=== PATIENT | female | born 2000 | race African-American/Black ===

== ENCOUNTER 2018-12-05 11:07 | Inpatient (IN) ==
[2018-12-05] MEDS ORDERED: BUTORPHANOL 2 MG/ML VIAL IV PRN (11:25)
[2018-12-05] MEDS ORDERED: ONDANSETRON 4 MG/2 ML VIAL IV PRN ×2 (11:25→15:52)
[2018-12-05] MEDS ORDERED: OXYTOCIN/LR 20 UNIT/1,000 ML BAG IV SCH (11:30)
[2018-12-05] MEDS ORDERED: FAMOTIDINE 20 MG/2 ML VIAL IV ONE (11:48)
[2018-12-05] MEDS ORDERED: NALOXONE 0.4 MG/ML VIAL IV PRN (11:48)
[2018-12-05] MEDS ORDERED: PROMETHAZINE 25 MG/1 ML VIAL IM ONE (11:48)
[2018-12-05] MEDS ORDERED: hydrOXYzine HCL 25 MG/1 ML VIAL IM PRN (11:48)
[2018-12-05] MEDS ORDERED: ePHEDrine 50 MG/ML AMP IV PRN (11:48)
[2018-12-05] MEDS ORDERED: diphenhydrAMINE 50 MG/1 ML VIAL IV PRN ×2 (11:48)
[2018-12-05] MEDS ORDERED: CITRIC ACID/SODIUM CITRATE 30 ML UDCUP PO ONE (11:48)
[2018-12-05] MEDS ORDERED: ONDANSETRON 4 MG/2 ML VIAL IV ONE (11:48)
[2018-12-05] MEDS: LACTATED RINGERS 1,000 ML IV SCH ×3 (11:59→13:49)
[2018-12-05] MEDS ORDERED: fentaNYL 2 MCG/ROPIV 0.2% EPID 100 ML EPIDURAL SCH (12:00)
[2018-12-05 12:10] LABS: Basophils % 0.3 % (0.0-0.8); Eosinophils % 0.1 % (0.00-10.9); Hemoglobin 11.2 GM/DL (12.0-16.0); Immature Granulocytes % 0.4 %; Immature Granulocytes Absolute 0.03 #; Lymphocytes # 0.7 10*3/uL (1.4-4.0); Lymphocytes % 9.8 % (21.3-54.2); Mean Corpuscular HGB Conc 31.1 GM/DL (32-36); Mean Corpuscular Volume 72.3 FL (87-102); Mean Platelet Volume 12.2 FL (9.6-12.0); Monocytes % 5.1 % (1.7-12.7); Neutrophils % 84.3 % (38.7-73.9); Platelet Count 239 T/CUMM (130-400); Red Blood Count 4.98 MC/CUMM (3.8-5.5); Red Cell Distribution Width 14.3 % (9.3-17.3); White Blood Count 7.4 T/CUMM (4-12)
[2018-12-05 12:32] LABS: Alanine Aminotransferase 32 U/L (13-56); Albumin 3.2 G/DL (3.4-5.0); Alkaline Phosphatase 213 U/L (45-117); Aspartate Amino Transferase 26 U/L (0-37); Bilirubin,Total < 0.39 MG/DL (0.2-1.0); Blood Urea Nitrogen 4 MG/DL (7-18); Calcium 9.4 MG/DL (8.5-10.1); Glucose 78 MG/DL (74-106); Osmolality,Calculated 272.5 MOS/KG (273-304); Total Protein 7.8 G/DL (6.4-8.3)
[2018-12-05] MEDS ORDERED: ACETAMINOPHEN 325 MG TABLET PO PRN (15:52)
[2018-12-05] MEDS ORDERED: DIPH/TET/ACEL PERT BOOSTER VACCINE 0.5 ML VIAL IM ONE (15:52)
[2018-12-05] MEDS ORDERED: oxyCODONE/ACETAMINOPHEN 5-325 MG TABLET PO PRN ×2 (15:52)
[2018-12-05] MEDS ORDERED: RHO(D) IMMUNE GLOBULIN 300 MCG SYRINGE IM ONE (15:52)
[2018-12-05] MEDS ORDERED: BENZOCAINE 20%/MENTHOL 0.5% SPRAY 56 GM CAN TOP PRN (15:52)
[2018-12-05] MEDS ORDERED: WITCH HAZEL PADS 100/JAR TOP PRN (15:52)
[2018-12-05] MEDS ORDERED: HYDROCORTISONE 2.5% RECTAL CREAM 30 GM TUBE TOP PRN (15:52)
[2018-12-05] MEDS ORDERED: LANOLIN 50% CREAM 0.3 OZ TUBE TOP PRN (15:52)
[2018-12-05] MEDS ORDERED: BISACODYL 10 MG SUPP RECTAL PRN (15:52)
[2018-12-05] MEDS ORDERED: MEASLES/MUMPS/RUBELLA VACCINE 0.5 ML VIAL SUBCUT ONE (15:52)
[2018-12-05] MEDS ORDERED: OXYTOCIN/LR 20 UNIT/1,000 ML BAG IV ONE (15:52)
[2018-12-05 16:20] LABS: Apearance,Urine CLEAR (Clear); Bilirubin,Urine Negative (Negative); Blood, Urine Negative (Negative); Glucose,Urine (UA) Negative (Negative); Ketones,Urine 80 mg/dL (Negative); Mucus,Urine Moderate /LPF (Occasional); Nitrite,Urine Negative (Negative); Protein,Urine Negative; RBC,Urine <1 /HPF (0-4); Squamous Epithelial Cell,Urine Occasional /HPF (0-10); Urine Color Yellow (Yellow); Urine Specific Gravity 1.016 (1.001-1.035); WBC,Urine 1 /HPF (0-6)
[2018-12-05 19:44] LABS: Hepatitis B Surface Ag Quant 0.14 Index; Hepatitis B Surface Ag Result Negative (Negative)
[2018-12-05] MEDS: DOCUSATE SODIUM 100 MG CAPSULE PO SCH (21:31)
[2018-12-05] MEDS: IBUPROFEN 800 MG TABLET PO PRN (21:32)
[2018-12-06] MEDS: IBUPROFEN 800 MG TABLET PO PRN ×2 (05:38→19:32)
[2018-12-06 05:47] LABS: Basophils # 0.1 10*3/uL (0.0-0.2); Basophils % 0.5 % (0.0-0.8); Eosinophils # 0.1 10*3/uL (0.0-0.87); Hematocrit 34.1 VOL% (35.7-47.0); Hemoglobin 10.4 GM/DL (12.0-16.0); Immature Granulocytes % 0.5 %; Immature Granulocytes Absolute 0.05 #; Lymphocytes # 2.4 10*3/uL (1.4-4.0); Lymphocytes % 22.6 % (21.3-54.2); Mean Corpuscular HGB Conc 30.5 GM/DL (32-36); Mean Corpuscular Volume 73.7 FL (87-102); Mean Platelet Volume 12.6 FL (9.6-12.0); Monocytes % 7.1 % (1.7-12.7); Neutrophils % 68.3 % (38.7-73.9); Platelet Count 209 T/CUMM (130-400); Red Blood Count 4.63 MC/CUMM (3.8-5.5); Red Cell Distribution Width 14.6 % (9.3-17.3); White Blood Count 10.5 T/CUMM (4-12)
[2018-12-06] MEDS: DOCUSATE SODIUM 100 MG CAPSULE PO SCH ×3 (09:45→21:40)
[2018-12-07 07:19] VITALS: BP 106/63
[2018-12-07] MEDS: DOCUSATE SODIUM 100 MG CAPSULE PO SCH (08:35)
== END 2018-12-07 12:10 | disposition home or self-care (01) | DRG 560 ==
LOC: N.LDOUT 11:07 → N.LD 11:09 → N.OB 19:21
PROVIDERS: ADMIT Obstetrics & Gynecology; ATTEND Specialist

== ENCOUNTER 2020-07-25 05:26 | Inpatient (IN) ==
[2020-07-25] MEDS ORDERED: LACTATED RINGERS 1,000 ML IV ONE (05:34)
[2020-07-25] MEDS ORDERED: ONDANSETRON 4 MG/2 ML VIAL IV PRN ×2 (05:34→17:50)
[2020-07-25] MEDS ORDERED: MEPERIDINE 50 MG/1 ML VIAL IM PRN (05:34)
[2020-07-25] MEDS ORDERED: AMPICILLIN INJ 2,000 MG in SODIUM CHLORIDE 0.9% 100 ML IV ONE (05:36)
[2020-07-25 06:03] LABS: Basophils % 0.3 % (0.0-0.8); Eosinophils # 0.2 10*3/uL (0.0-0.87); Eosinophils % 2.5 % (0.00-10.9); Hematocrit 32.7 VOL% (35.7-47.0); Hemoglobin 10.3 GM/DL (12.0-16.0); Immature Granulocytes % 0.2 %; Immature Granulocytes Absolute 0.01 #; Lymphocytes # 2.3 10*3/uL (1.4-4.0); Lymphocytes % 34.5 % (21.3-54.2); Mean Corpuscular HGB Conc 31.5 GM/DL (32-36); Mean Corpuscular Volume 72.3 FL (87-102); Mean Platelet Volume 12.2 FL (9.6-12.0); Monocytes % 8.6 % (1.7-12.7); Neutrophils % 53.9 % (38.7-73.9); Platelet Count 227 T/CUMM (130-400); Red Blood Count 4.52 MC/CUMM (3.8-5.5); Red Cell Distribution Width 13.9 % (9.3-17.3); White Blood Count 6.5 T/CUMM (4-12)
[2020-07-25] MEDS: LACTATED RINGERS 1,000 ML IV SCH ×2 (06:03→08:23)
[2020-07-25] MEDS: OXYTOCIN/LR 20 UNIT/1,000 ML BAG IV SCH ×2 (06:10→17:50)
[2020-07-25 06:37] LABS: Alanine Aminotransferase 18 U/L (13-56); Albumin 2.5 G/DL (3.4-5.0); Alkaline Phosphatase 199 U/L (45-117); Aspartate Amino Transferase 23 U/L (0-37); Bilirubin,Total < 0.39 MG/DL (0.2-1.0); Blood Urea Nitrogen 6 MG/DL (7-18); Calcium 8.9 MG/DL (8.5-10.1); Carbon Dioxide 20 MMOL/L (21-32); Estimated Glom Filtration Rate 141 ML/MIN; Glucose 77 MG/DL (74-106); Osmolality,Calculated 271.7 MOS/KG (273-304); Potassium 4.1 MMOL/L (3.5-5.1); Sodium 138 MMOL/L (136-145); Total Protein 7.1 G/DL (6.4-8.3)
[2020-07-25] MEDS ORDERED: hydrOXYzine HCL 25 MG/1 ML VIAL IM PRN (07:52)
[2020-07-25] MEDS ORDERED: NALOXONE 0.4 MG/ML VIAL IV PRN (07:52)
[2020-07-25] MEDS ORDERED: PROMETHAZINE 25 MG/1 ML VIAL IM ONE (07:52)
[2020-07-25] MEDS ORDERED: diphenhydrAMINE 50 MG/1 ML VIAL IV PRN ×2 (07:52)
[2020-07-25] MEDS ORDERED: CITRIC ACID/SODIUM CITRATE 30 ML UDCUP PO ONE (07:52)
[2020-07-25] MEDS ORDERED: ePHEDrine 50 MG/ML VIAL IV PRN (07:52)
[2020-07-25] MEDS ORDERED: FAMOTIDINE 20 MG/2 ML VIAL IV ONE (07:52)
[2020-07-25] MEDS ORDERED: fentaNYL 2 MCG/ROPIV 0.2% EPID 100 ML EPIDURAL SCH (08:00)
[2020-07-25] MEDS ORDERED: AMPICILLIN INJ 1,000 MG in SODIUM CHLORIDE 0.9% 100 ML IV SCH (10:00)
[2020-07-25] MEDS ORDERED: TRANEXAMIC ACID 1,000 MG/10 ML VIAL ONE (12:11)
[2020-07-25] MEDS ORDERED: miSOPROStoL 200 MCG TABLET ONE (12:11)
[2020-07-25] MEDS ORDERED: METHYLERGONOVINE 0.2 MG/1 ML AMP ONE (12:12)
[2020-07-25] MEDS ORDERED: CARBOPROST TROMETHAMINE 250 MCG/ML AMP IM ONE (12:12)
[2020-07-25 12:32] LABS: Cord Arterial Blood HCO3 20.9 MMOL/L
[2020-07-25 12:33] LABS: Cord Venous Blood PCO2 46.3 MMHG; Cord Venous Blood PO2 26.2 MMHG
[2020-07-25 12:37] LABS: Bilirubin,Urine Negative (Negative); Blood, Urine Negative (Negative); Glucose,Urine (UA) Negative (Negative); Ketones,Urine 5 mg/dL (Negative); Mucus,Urine Occasional /LPF (Occasional); Nitrite,Urine Negative (Negative); Protein,Urine Negative; RBC,Urine <1 /HPF (0-4); Squamous Epithelial Cell,Urine Occasional /HPF (0-10); Urine Appearance CLEAR (Clear); Urine Color Straw (Yellow); Urine Specific Gravity 1.009 (1.001-1.035); Urine Urobilinogen < 2.0 EU/DL (0.2-1.0)
[2020-07-25] MEDS: IBUPROFEN 800 MG TABLET PO PRN ×2 (15:11→22:14)
[2020-07-25] MEDS: oxyCODONE/ACETAMINOPHEN 5-325 MG TABLET PO PRN (17:49)
[2020-07-25] MEDS ORDERED: MEASLES/MUMPS/RUBELLA VACCINE 0.5 ML VIAL SUBCUT ONE (17:50)
[2020-07-25] MEDS ORDERED: BISACODYL 10 MG SUPP RECTAL PRN (17:50)
[2020-07-25] MEDS ORDERED: DIPH/TET/ACEL PERT BOOSTER VACCINE 0.5 ML VIAL IM ONE (17:50)
[2020-07-25] MEDS ORDERED: BENZOCAINE 20%/MENTHOL 0.5% SPRAY 56 GM CAN TOP PRN (17:50)
[2020-07-25] MEDS ORDERED: LANOLIN 50% CREAM 0.3 OZ TUBE TOP PRN (17:50)
[2020-07-25] MEDS ORDERED: ACETAMINOPHEN 325 MG TABLET PO PRN (17:50)
[2020-07-25] MEDS ORDERED: OXYTOCIN/LR 20 UNIT/1,000 ML BAG IV ONE (17:50)
[2020-07-25] MEDS ORDERED: oxyCODONE/ACETAMINOPHEN 5-325 MG TABLET PO PRN (17:50)
[2020-07-25] MEDS ORDERED: IBUPROFEN 800 MG TABLET PO PRN (17:50)
[2020-07-25] MEDS ORDERED: RHO(D) IMMUNE GLOBULIN 300 MCG SYRINGE IM ONE (17:50)
[2020-07-25] MEDS ORDERED: HYDROCORTISONE 2.5% RECTAL CREAM 30 GM TUBE TOP PRN (17:50)
[2020-07-25] MEDS ORDERED: WITCH HAZEL PADS 100/JAR TOP PRN (17:50)
[2020-07-25] MEDS: DOCUSATE SODIUM 100 MG CAPSULE PO SCH ×2 (19:29→22:46)
[2020-07-26] MEDS: oxyCODONE/ACETAMINOPHEN 5-325 MG TABLET PO PRN ×2 (05:12→15:41)
[2020-07-26] MEDS: IBUPROFEN 800 MG TABLET PO PRN (05:12)
[2020-07-26 06:34] LABS: Basophils # 0.1 10*3/uL (0.0-0.2); Basophils % 0.5 % (0.0-0.8); Eosinophils # 0.3 10*3/uL (0.0-0.87); Eosinophils % 3.5 % (0.00-10.9); Hematocrit 30.2 VOL% (35.7-47.0); Hemoglobin 9.4 GM/DL (12.0-16.0); Immature Granulocytes % 0.4 %; Immature Granulocytes Absolute 0.04 #; Lymphocytes # 2.5 10*3/uL (1.4-4.0); Lymphocytes % 27.1 % (21.3-54.2); Mean Corpuscular HGB Conc 31.1 GM/DL (32-36); Mean Corpuscular Volume 73.7 FL (87-102); Mean Platelet Volume 12.8 FL (9.6-12.0); Monocytes % 6.7 % (1.7-12.7); Neutrophils % 61.8 % (38.7-73.9); Platelet Count 193 T/CUMM (130-400); Red Cell Distribution Width 14.5 % (9.3-17.3); White Blood Count 9.2 T/CUMM (4-12)
[2020-07-26 06:57] LABS: Platelet Estimate Normal
[2020-07-26 06:58] LABS: Anisocytosis 2+; Hypochromasia Slight
[2020-07-26] MEDS ORDERED: RHO(D) IMMUNE GLOBULIN 300 MCG SYRINGE IM ONE (09:00)
[2020-07-26] MEDS: DOCUSATE SODIUM 100 MG CAPSULE PO SCH ×2 (09:27→19:59)
[2020-07-27] MEDS: oxyCODONE/ACETAMINOPHEN 5-325 MG TABLET PO PRN (01:47)
[2020-07-27] MEDS: IBUPROFEN 800 MG TABLET PO PRN (01:47)
[2020-07-27] MEDS ORDERED: INFLUENZA VIRUS VACCINE 0.5 ML SYRINGE IM ONE (09:00)
[2020-07-27] MEDS: DOCUSATE SODIUM 100 MG CAPSULE PO SCH (09:14)
[2020-07-27 09:30] VITALS: BP 119/78
[2020-07-27] MEDS ORDERED: MAGNESIUM HYDROXIDE SUSP 30 ML UDCUP PO ONE (13:13)
== END 2020-07-27 14:20 | disposition home or self-care (01) | DRG 560 ==
LOC: N.LD 05:26 → N.OB 15:53
PROVIDERS: ADMIT Specialist; ATTEND Specialist

== ENCOUNTER 2022-04-14 02:54 | Inpatient (IN) ==
[2022-04-14] MEDS ORDERED: OXYTOCIN/LR 20 UNIT/1,000 ML BAG IV ONE ×3 (03:06→03:54)
[2022-04-14] MEDS ORDERED: ACETAMINOPHEN 325 MG TABLET PO PRN ×2 (03:11→03:54)
[2022-04-14] MEDS ORDERED: BISACODYL 10 MG SUPP RECTAL PRN ×2 (03:11→03:54)
[2022-04-14] MEDS ORDERED: ONDANSETRON 4 MG/2 ML VIAL IV PRN ×3 (03:11→03:54)
[2022-04-14] MEDS ORDERED: MAGNESIUM HYDROXIDE SUSP 30 ML UDCUP PO PRN (03:11)
[2022-04-14] MEDS ORDERED: IBUPROFEN 800 MG TABLET PO PRN (03:11)
[2022-04-14] MEDS ORDERED: BUTORPHANOL 1 MG/ML VIAL IV ONE (03:18)
[2022-04-14] MEDS ORDERED: CARBOPROST TROMETHAMINE 250 MCG/ML AMP IM PRN (03:20)
[2022-04-14] MEDS ORDERED: METHYLERGONOVINE 0.2 MG/1 ML AMP IM PRN (03:20)
[2022-04-14] MEDS ORDERED: LACTATED RINGERS 250 ML IV ONE (03:20)
[2022-04-14] MEDS ORDERED: TRANEXAMIC ACID 1,000 MG in SODIUM CHLORIDE 0.9% 100 ML IV PRN (03:20)
[2022-04-14] MEDS ORDERED: miSOPROStoL 200 MCG TABLET RECTAL PRN (03:20)
[2022-04-14] MEDS ORDERED: LACTATED RINGERS 1,000 ML IV SCH ×2 (03:30)
[2022-04-14 03:39] LABS: Basophils % 0.4 % (0.0-0.8); Eosinophils # 0.1 10*3/uL (0.0-0.87); Eosinophils % 0.5 % (0.00-10.9); Hematocrit 34.3 VOL% (35.7-47.0); Hemoglobin 10.5 GM/DL (12.0-16.0); Immature Granulocytes % 0.3 %; Immature Granulocytes Absolute 0.03 #; Lymphocytes # 5.7 10*3/uL (1.4-4.0); Lymphocytes % 50.9 % (21.3-54.2); Mean Corpuscular HGB Conc 30.6 GM/DL (32-36); Mean Platelet Volume 12.7 FL (9.6-12.0); Monocytes # 0.7 10*3/uL (0.11-0.8); Monocytes % 6.2 % (1.7-12.7); Neutrophils % 41.7 % (38.7-73.9); Platelet Count 198 T/CUMM (130-400); Red Cell Distribution Width 14.6 % (9.3-17.3); White Blood Count 11.3 T/CUMM (4-12)
[2022-04-14 03:44] LABS: Cord Venous Blood HCO3 23.1 MMOL/L; Cord Venous Blood PCO2 37.5 MMHG; Cord Venous Blood PO2 32.8
[2022-04-14] MEDS ORDERED: WITCH HAZEL PADS 100/JAR TOP PRN (03:54)
[2022-04-14] MEDS ORDERED: DIPH/TET/ACEL PERT BOOSTER VACCINE 0.5 ML VIAL IM ONE (03:54)
[2022-04-14] MEDS ORDERED: BENZOCAINE 20%/MENTHOL 0.5% SPRAY 56 GM CAN TOP PRN (03:54)
[2022-04-14] MEDS ORDERED: oxyCODONE/ACETAMINOPHEN 5-325 MG TABLET PO PRN ×2 (03:54)
[2022-04-14] MEDS ORDERED: HYDROCORTISONE 2.5% RECTAL CREAM 30 GM TUBE TOP PRN (03:54)
[2022-04-14] MEDS ORDERED: MEASLES/MUMPS/RUBELLA VACCINE 0.5 ML VIAL SUBCUT ONE (03:54)
[2022-04-14] MEDS ORDERED: LANOLIN 50% CREAM 0.3 OZ TUBE TOP PRN (03:54)
[2022-04-14] MEDS ORDERED: RHO(D) IMMUNE GLOBULIN 300 MCG SYRINGE IM ONE (03:54)
[2022-04-14 04:00] LABS: Hypochromia Slight; Lymphocytes 62 % (20-55); Microcytosis Slight; Platelet Estimate Adequate; Total Cells Counted 100
[2022-04-14 04:04] LABS: Alanine Aminotransferase 19 U/L (13-56); Albumin 2.7 G/DL (3.4-5.0); Alkaline Phosphatase 196 U/L (45-117); Aspartate Amino Transferase 17 U/L (0-37); Bilirubin,Total < 0.39 MG/DL (0.20-1.00); Blood Urea Nitrogen 6 MG/DL (7-18); Calcium 8.6 MG/DL (8.5-10.1); Carbon Dioxide 21 MMOL/L (21-32); Chloride 108 MMOL/L (98-107); Glucose 115 MG/DL (74-106); Osmolality,Calculated 273.7 MOS/KG (273-304); Potassium 3.6 MMOL/L (3.5-5.1); Sodium 138 MMOL/L (136-145); Total Protein 7.5 G/DL (6.4-8.2)
[2022-04-14] MEDS: IBUPROFEN 800 MG TABLET PO PRN ×2 (05:12→13:32)
[2022-04-14 08:20] LABS: RPR Confirm - Less than 1 yr REACTIVE (Nonreactive)
[2022-04-14] MEDS: DOCUSATE SODIUM 100 MG CAPSULE PO SCH ×2 (08:59→21:04)
[2022-04-14] MEDS ORDERED: DOCUSATE SODIUM 100 MG CAPSULE PO SCH (09:00)
[2022-04-15 06:10] LABS: Basophils # 0.1 10*3/uL (0.0-0.2); Basophils % 0.7 % (0.0-0.8); Eosinophils # 0.1 10*3/uL (0.0-0.87); Eosinophils % 1.6 % (0.00-10.9); Hematocrit 31.2 VOL% (35.7-47.0); Hemoglobin 9.7 GM/DL (12.0-16.0); Immature Granulocytes % 0.3 %; Immature Granulocytes Absolute 0.03 #; Lymphocytes # 3.5 10*3/uL (1.4-4.0); Mean Corpuscular HGB Conc 31.1 GM/DL (32-36); Mean Corpuscular Volume 72.2 FL (87-102); Mean Platelet Volume 11.4 FL (9.6-12.0); Monocytes # 0.5 10*3/uL (0.11-0.8); Monocytes % 5.1 % (1.7-12.7); Neutrophils % 52.3 % (38.7-73.9); Platelet Count 198 T/CUMM (130-400); Red Blood Count 4.32 MC/CUMM (3.8-5.5); Red Cell Distribution Width 14.7 % (9.3-17.3); White Blood Count 8.9 T/CUMM (4-12)
[2022-04-15] MEDS: IBUPROFEN 800 MG TABLET PO PRN (06:53)
[2022-04-15] MEDS: DOCUSATE SODIUM 100 MG CAPSULE PO SCH (08:42)
[2022-04-15 10:43] VITALS: BP 99/51
== END 2022-04-15 15:50 | disposition home or self-care (01) | DRG 560 ==
LOC: N.OBOUT 02:54 → N.LD 02:55 → N.OB 08:17
PROVIDERS: ADMIT Specialist; ATTEND Specialist